=== PATIENT | male | born 1965 ===

== ENCOUNTER 2018-04-03 08:08 | Day surgery (SDC) | payer BC ==
[~2018-04-03 08:08] MED LIST: Lactated Ringers 1,000 ML IV SCH; Lidocaine 1%/Sod Bicarbonate in NS 8.4% 1 ML Syringe IDERM PRN; Sodium Chloride 0.9% 10 ML Syringe FLUSH PRN
--- NOTE | 2018-04-03 08:38 | PCM.PREANE ---
Preanesthetic Assessment - Anesthesia/Transfusion/Family Hx Anesthesia History: Prior Anesthesia Without Reaction Family History of Anesthesia Reaction: No Transfusion History: No Prior Transfusion(s) - Review of Systems General: No Symptoms Pulmonary: No Symptoms Cardiovascular: No Symptoms Gastrointestinal: No Symptoms Neurological: No Symptoms Other: Reports: None - Physical Assessment NPO Status Date: 04/02/18 (sip with pills am) NPO Status Time: 23:00 Pulse: 64 O2 Sat by Pulse Oximetry: 95 Respiratory Rate: 16 Blood Pressure: 145/86 Temperature: 97.6 F Height: 5 ft 7 in Weight: 99.473 kg ASA Class: 2 Mental Status: Alert & Oriented x3 Airway Class: Mallampati = 1 Dentition: Reports: Normal Dentition Thyro-Mental Finger Breadths: 3 Mouth Opening Finger Breadths: 3 ROM/Head Extension: Full Lungs: Clear to Auscultation, Normal Respiratory Effort Cardiovascular: Regular Rate, Regular Rhythm - Allergies Allergies/Adverse Reactions: Allergies Allergy/AdvReac Type Severity Reaction Status Date / Time No Known Allergies Allergy Verified 03/31/18 14:00 - Blood Blood Available: No - Acknowledgements Anesthesia Type Planned: MAC Pt an Appropriate Candidate for the Planned Anesthesia: Yes Alternatives and Risks of Anesthesia Discussed w Pt/Guardian: Yes Pt/Guardian Understands and Agrees with Anesthesia Plan: Yes PreAnesthesia Questionnaire HEENT History: Reports: None Cardiovascular History: Reports: Hypertension, VA, Other (See Below) Other Cardiovascular History: nstemi, coronary atherosclerosis Respiratory History: Reports: None Gastrointestinal History: Reports: GERD Genitourinary History: Reports: None SUPPORT MERCHANDISER History: Reports: None Musculoskeletal History: Reports: None Neurological History: Reports: None Psychiatric History: Reports: None Endocrine/Metabolic History: Reports: None, Obesity/BMI 30+ Hematologic History: Reports: None Immunologic History: Reports: None Oncologic (Cancer) History: Reports: None Dermatologic History: Reports: Psoriasis - Past Surgical History Head Surgeries/Procedures: Reports: None HEENT Surgical History: Reports: None Cardiovascular Surgical History: Reports: Coronary Artery Bypass Respiratory Surgical History: Reports: None GI Surgical History: Reports: None Female Surgical History: Reports: None Male Surgical History: Reports: None Endocrine Surgical History: Reports: None Neurological Surgical History: Reports: None Musculoskeletal Surgical History: Reports: None Oncologic Surgical History: Reports: None Dermatological Surgical History: Reports: None - SUBSTANCE USE Smoking Status *Q: Former Smoker (quit quit 2 years) Tobacco Use Within Last Twelve Months: No Second Hand Smoke Exposure: No Days Per Week of Alcohol Use: 0 (sober for 7 years) Recreational Drug Use History: No - HOME MEDS Home Medications: Home Meds Omeprazole [priLOSEC OTC] 20 mg PO DAILY 04/18/14 [History] Aspirin 81 mg PO DAILY 07/20/16 [History] Metoprolol Tartrate 50 mg PO BID 07/20/16 [History] - CURRENT (IN HOUSE) MEDS Current Meds: Current Medications Lactated Ringer's (Ringers, Lactated) 1,000 mls @ 125 mls/hr IV ASDIRECTED IVONNE Stop: 04/03/18 23:00 Last Admin: 04/03/18 08:25 Dose: 125 mls/hr Lidocaine/Sodium Bicarbonate (Buffered Lidocaine 1% In Ns 8.4%) 0.25 ml IDERM ONETIME PRN PRN Reason: Prior to IV Start Stop: 04/03/18 18:00 Last Admin: 04/03/18 08:25 Dose: 0.25 ml Sodium Chloride (Saline Flush) 10 ml FLUSH ASDIRECTED PRN PRN Reason: Keep Vein Open Stop: 04/03/18 18:00
[2018-04-03] MEDS ORDERED: Lidocaine 1% 4 ML ONE (09:09)
[2018-04-03] MEDS ORDERED: fentaNYL 100 MCG/2 ML SDV ONE (09:09)
[2018-04-03] MEDS ORDERED: Propofol 200 MG/20 ML SDV ONE (09:09)
[2018-04-03] MEDS ORDERED: Midazolam 1 MG/ML 2 ML SDV ONE (09:10)
--- NOTE | 2018-04-03 11:31 | PCM.OPNOTE ---
- General Post-Op/Procedure Note Date of Surgery/Procedure: 04/03/18 Operative Procedure(s): Colonoscopy with forceps polypectomy 2 Findings: 1. Anal tag 2. Mild sigmoid diverticulosis 3. Descending colonic polyp and rectal polyp both diminutive Pre Op Diagnosis: Screening colonoscopy Post-Op Diagnosis: 1. Anal tag. 2. Mild sigmoid diverticulosis. 3. Descending colonic polyp and rectal polyp both diminutive Anesthesia Technique: MAC, Moderate Sedation Primary Surgeon: Cesar Alves Pathology: 2 small polyps less than 5 mm in diameter EBL in mLs: 0 Complications: None Condition: Good Free Text/Narrative:: After adequate IV sedation and analgesia was obtained with monitoring the patient was placed on his left side. Perianal inspection revealed the anal tag. Digital rectal examination revealed a slightly enlarged prostate without nodules. A lubricated colonoscope was inserted into the rectum and advanced to the cecum without difficulty. The bowel preparation was adequate. The cecum right colon and transverse colons were endoscopically normal with no mass lesions or inflammatory changes seen. Within the descending colon at 60 cm from the anal verge there was a small polyp which was removed with cold forceps. The specimen was retrieved and the area was hemostatic. The scope was withdrawn to the sigmoid in which there were small diverticuli which was uncomplicated. There was a rectal polyp at about 15 cm which was removed with cold forceps. The retroflexed view was otherwise unremarkable. Air was removed as I finished the procedure which he tolerated well. Deck Supervisor photographs were taken for the patient and for the medical record.
[2018-04-03 11:32] VITALS: BP 118/86
--- NOTE | 2018-04-03 11:32 | PCM48HPAN ---
Post Anesthesia Note - EVALUATION WITHIN 48HRS OF ANESTHETIC Vital Signs in Normal Range: Yes Patient Participated in Evaluation: Yes Respiratory Function Stable: Yes Airway Patent: Yes Cardiovascular Function Stable: Yes Hydration Status Stable: Yes Pain Control Satisfactory: Yes Nausea and Vomiting Control Satisfactory: Yes Mental Status Recovered: Yes Pulse Rate: 67 SaO2: 95 Resp Rate: 16 Temperature: 97.8 F Blood Pressure: 118/86
== END 2018-04-03 12:00 | disposition home or self-care (01) ==
LOC: JD.SDS 08:08
PROVIDERS: ATTEND Surgery
DX: Z12.11 Encounter for screening for malignant neoplasm of colon (principal); K63.5 Polyp of colon; K62.1 Rectal polyp; K57.30 Diverticulosis of large intestine without perforation or abscess without bleeding; K64.4 Residual hemorrhoidal skin tags; I25.10 Atherosclerotic heart disease of native coronary artery without angina pectoris; K21.9 Gastro-esophageal reflux disease without esophagitis; I10 Essential (primary) hypertension; I25.2 Old myocardial infarction; L40.9 Psoriasis, unspecified; E66.9 Obesity, unspecified; Z68.35 Body mass index [BMI] 35.0-35.9, adult; Z79.82 Long term (current) use of aspirin; Z79.899 Other long term (current) drug therapy; Z95.1 Presence of aortocoronary bypass graft; Z87.891 Personal history of nicotine dependence
CPT/HCPCS: 45380; J2001; J2250; J3010; J7120; 00811; J2704